=== PATIENT | male | born 1990 | race African-American/Black ===

== ENCOUNTER 2018-10-04 20:14 | Emergency (ER) | payer BC ==
[2018-10-04] MEDS ORDERED: LORazepam 2 MG/ML SDV IVPUSH ONE (20:22)
[2018-10-04] MEDS ORDERED: Metoclopramide 10 MG/2 ML SDV IVPUSH ONE (20:23)
--- NOTE | 2018-10-04 20:27 | EDM.PDOC ---
ED HPI GENERAL MEDICAL PROBLEM - General Chief Complaint: Trauma Stated Complaint: HEAD INJURY Time Seen by Provider: 10/04/18 20:21 Source of Information: Reports: Patient, Other (witnesses to the accident. ) History Limitations: Reports: Altered Mental Status - History of Present Illness INITIAL COMMENTS - FREE TEXT/NARRATIVE: 27-year-old male -[place] in ancestry presents to the ED after a skateboarding accident in which he fell and reportedly struck his head hard on the pavement of the street and his lower back on the concrete curb. He occurred approximately 25 minutes ago. A fellow who witnessed the accident reports that he attended in right away and initially he could converse normally did not lose consciousness. However he then started to rapidly deteriorate with confused speech and mumbled speech. In the ED he is mumbling and stating that he just wants to go home that he is very tired. He is not oriented to place person or time. Past history is unknown. Patient is not able to supply this information. Onset: Today Onset Date: 10/04/18 Onset Time: 19:55 Duration: Minutes: Location: Reports: Head, Neck, Back (Lower back mid back) Quality: Reports: Other Severity: Moderate Improves with: Reports: None Worsens with: Reports: Other (Neuro function is deteriorated according to his friend since the time of injury with mumbled speech and disorientation to person place and time.) Context: Reports: Trauma (Fall while skateboarding without any protective gear in place.) Associated Symptoms: Reports: Confusion (Altered level of mental status.). Denies: Chest Pain, Cough, cough w sputum, Loss of Appetite, Nausea/Vomiting Treatments FOOD SAFETY OFFICER: Reports: Other (see below) (None.) - Related Data Allergies Allergy/AdvReac Type Severity Reaction Status Date / Time No Known Allergies Allergy Verified 10/04/18 20:27 Home Meds: Home Meds . [Unable to Verify Home Med List] 10/04/18 [History] Review of Systems - Review of Systems Review Of Systems: Unable To Obtain ED EXAM, GENERAL - Physical Exam Exam: See Below Exam Limited By: Altered Mental Status General Appearance: Lethargic, Other (Morning and groaning and making nonsensical speech in terms that he states he just wants to go home. That is very tired. Disoriented to time person and place. Patient is agitated and restless. He is moving his head from side to side but cannot obey any commands. BP is elevated at 182/110. Afebrile pulse of 81 and sinus respiratory is 20 with sats 100% on room air.) Eye Exam: Bilateral Eye: Normal Inspection (Pupils are equal response to light and accommodation.), PERRL Ears: Normal TMs Head: Other (Juana has tenderness and developing subcutaneous hematoma mid and lower occipital scalp in the midline. There is superficial abrasion and superficial bleeding from the exceptional scalp.) Neck: Normal Inspection, Full Range of Motion (He is moving his head from side to side.), Other Respiratory/Chest: No Respiratory Distress, Lungs Clear, Normal Breath Sounds, Respiratory Distress (Mild tachypnea at 20/m due to), Other (No outward signs of any trauma to his anterior chest or sternum.) Cardiovascular: Normal Peripheral Pulses, Regular Rate, Rhythm, No Edema, No Gallop, No Murmur Peripheral Pulses: 3+: Posterior Tibial (L), Posterior Tibial (R), Dorsalis Pedis (L), Dorsalis Pedis (R) GI/Abdominal: Normal Bowel Sounds, Soft, Non-Tender, No Organomegaly, No Mass, Pelvis Stable, Rebound, Other (No signs of abdominal wall trauma.) Back Exam: Other (Complains of pain on palpation at the thoracolumbar junction and over the lumbar spinous processes.) Extremities: Normal Inspection, Normal Range of Motion, Non-Tender, Other (No outward signs of any trauma to his elbow shoulders wrists forearms hips or knees.) Neurological: No Motor/Sensory Deficits (Moving all limbs without any problems.) , Disoriented (Disoriented to person place and time.), Other ([place]ach is nonsensical and he moans and groans. Requests over and over again that just wants to go home that he is very tired.). No: Alert, Oriented, Normal Cognition Psychiatric: Anxious, Other Skin Exam: Other (Minor abrasion to the occipital scalp with some superficial bleeding.) Course - Vital Signs Last Recorded V/S: Last Vital Signs Temp 36.7 C 10/04/18 20:21 Pulse 81 10/04/18 20:21 Resp 20 10/04/18 20:21 BP 182/110 H 10/04/18 20:21 Pulse Ox 100 10/04/18 20:21 - Orders/Labs/Meds Orders: Active Orders 24 hr Category Date Time Status Sodium Chloride 0.9% [Normal Saline] 1,000 ml Med 10/04/18 20:30 Active IV ASDIRECTED Medication Orders Sodium Chloride (Normal Saline) 1,000 mls @ 100 mls/hr IV ASDIRECTED SOULEYMANE Last Admin: 10/04/18 20:29 Dose: 100 mls/hr Labs: Laboratory Tests 10/04/18 10/04/18 10/04/18 Range/Units 20:25 20:25 20:25 WBC 6.36 (4.23-9.07) K/mm3 RBC 5.68 (4.63-6.08) M/mm3 Hgb 15.3 (13.7-17.5) gm/L Hct 44.8 (40.1-51.0) % MCV 78.9 L (79.0-92.2) fl MCH 26.9 (25.7-32.2) pg MCHC 34.2 (32.2-35.5) g/dl RDW Std Deviation 41.1 (35.1-43.9) fL Plt Count 296 (163-337) K/mm3 MPV 9.5 (9.4-12.3) fl Neut % (Auto) 50.0 (34.0-67.9) % Lymph % (Auto) 36.6 (21.8-53.1) % [place] % (Auto) 8.6 (5.3-12.2) % Eos % (Auto) 4.4 (0.8-7.0) Baso % (Auto) 0.2 (0.1-1.2) % Neut # (Auto) 3.18 (1.78-5.38) K/mm3 Lymph # (Auto) 2.33 (1.32-3.57) K/mm3 [place] # (Auto) 0.55 (0.30-0.82) K/mm3 Eos # (Auto) 0.28 (0.04-0.54) K/mm3 Baso # (Auto) 0.01 (0.01-0.08) K/mm3 PT 10.1 (9.7-12.0) SECONDS INR < 0.93 APTT 25 (22-31) SECONDS Sodium 141 (136-145) mEq/L Potassium 3.4 L (3.5-5.1) mEq/L Chloride 104 (98-107) mEq/L Carbon Dioxide 30 (21-32) mEq/L Anion Gap 10.4 (5-15) BUN 10 (7-18) mg/dL Creatinine 1.2 (0.7-1.3) mg/dL Est Cr Clr Drug Dosing 82.70 mL/min Estimated GFR (MDRD) > 60 (>60) mL/min BUN/Creatinine Ratio 8.3 L (14-18) Glucose 91 (74-106) mg/dL Calcium 8.9 (8.5-10.1) mg/dL Total Bilirubin 0.6 (0.2-1.0) mg/dL AST 21 (15-37) U/L ALT 33 (16-63) U/L Alkaline Phosphatase 77 (46-116) U/L Total Protein 8.0 (6.4-8.2) g/dl Albumin 4.1 (3.4-5.0) g/dl Globulin 3.9 gm/dL Albumin/Globulin Ratio 1.1 (1-2) Meds: Medications Generic Name Dose Route Start Last Admin Trade Name Freq PRN Reason Stop Dose Admin Sodium Chloride 1,000 mls @ 100 mls/hr 10/04/18 20:30 10/04/18 20:29 Normal Saline IV 100 mls/hr ASDIRECTED SOULEYMANE Administration Discontinued Medications Generic Name Dose Route Start Last Admin Trade Name Freq PRN Reason Stop Dose Admin Lorazepam 1 mg 10/04/18 20:22 10/04/18 20:29 Ativan IVPUSH 10/04/18 20:23 1 mg ONETIME ONE Administration Metoclopramide HCl 10 mg 10/04/18 20:23 10/04/18 20:31 Reglan IVPUSH 10/04/18 20:24 10 mg ONETIME ONE Administration - Radiology Interpretation Free Text/Narrative:: 27-year-old male apparently injured his head while skateboarding without any protective gear within the last 40 minutes. He has Y Davy was witnessed by another skateboarder who attended him immediately. He states that the patient couldn't speak with him initially and did not appear to have suffered a loss of consciousness. However over the ensuing 10-15 minutes his speech became difficult to understand and mumbling. He became disoriented to person place and time and thus was brought to the ED. Patient in the ED is indicating that he just wants to go home and that he is very tired and wants to sleep. He does have a hematoma developing occipital scalp a superficial abrasions. Also has evidence of contusion abrasion to the lumbar spine. Plan CT head, CT cervical spine, CT thoracic spine and CT lumbar spine to be carried out. IV will be normal saline at 100 mils per hour. Given Reglan 10 mg IV and nausea relief and Ativan 1 mg IV in the hopes of providing mild sedation to allow for appropriate CT head. - Re-Assessments/Exams Free Text/Narrative Re-Assessment/Exam: 10/04/18 21:15: CT head reveals a possible abnormality in the right occipital brain adjacent to the falx. Be just in the watershed zone I will await the radiologist's report. Questionable skull fracture on the left occipital scalp. No severe subdural hematoma evident. CT cervical spine thoracic spine and lumbar spine do not reveal any fractures. Patient is resting at present with the above medications have been given to provide sedation and relief of agitation from concussion. 10/04/18 21:26 Labs are normal with a white count of 6.36. Differential shows 50 % neutrophils on the auto differential. Hemoglobin is 15.3 with hematocrit of 44.8. MCV is slightly low at 78.9 suggesting iron deficiency or hereditary spherocytosis. PT is 10.1 with an INR of less than 0.93. PTT is 25. Sodium 141 with a but potassium of 3.4. Chloride is 104 the bicarbonate 30. Anion gap is 10.4. B you and is 10 with a creatinine of 1.2. Estimated GFR is greater than 60. Glucose is 91 with a calcium of 8.9. Liver function normal. Total protein is 8.0 with an albumin fraction of 4.1. 10/04/18 21:50: CT of the head neck thoracic and lumbar spine is been over read by the radiologist. She does not see any significant evidence of intracranial hemorrhage in the occipital scalp and no skull fractures. He does appreciate mild paranasal sinus disease within the ethmoids and sphenoids and frontal sinuses as I did notice as well but did not comment on. He agrees with no fractures in the thoracic or lumbar spine or in the cervical spine. Patient's mother is here and willing to accept care at home. For the next 24 hours and aid him as needed. He will use Motrin or Tylenol for headache relief. Given to excuse him from the work place for the next week as he works on a work over rate which means climbing ladders and being up off the ground. He makes peers vertigo and dizziness for several days due to the nature of his injury. Just follow-up with his personal care physician on Friday this week to be cleared to return to work. Departure - Departure Time of Disposition: 21:55 Disposition: Home, Self-Care 01 Condition: Fair Clinical Impression: Head injury, closed, with concussion Qualifiers: Encounter type: initial encounter Loss of consciousness presence/duration: without LOC Qualified Code(s): S06.0X0A - Concussion without loss of consciousness, initial encounter Contusion of lower back Qualifiers: Encounter type: initial encounter Qualified Code(s): S30.0XXA - Contusion of lower back and pelvis, initial encounter Sprain of cervical neck Qualifiers: Encounter type: initial encounter Qualified Code(s): S13.9XXA - Sprain of joints and ligaments of unspecified parts of neck, initial encounter - Discharge Information Instructions: Head Injury, Adult, Concussion, Adult, Contusion, [id number] Referrals: PCP,None [Primary Care Provider] - Forms: ED Department Discharge, ED Return to Work/School Form Additional Instructions: Evaluation the emergency room tonight after suffering a closed head injury without reported loss of consciousness on scene. Definite concussion has occurred with confusion and disorientation to person time and place when you arrived in the ED. The scan of the brain does not show any signs of bleeding intracranially or skull fracture. CT of the neck bones mid back bones and the lower back bones called the cervical, thoracic and lumbar spine do not reveal any signs of broken bones. As the landed across her lower back on the curb of the sidewalk. Expect to be much more stiff and sore over the next 2-3 days and then start to gradually improve. Just plenty of rest and plenty of fluids concussion syndrome is headache. Sometimes loss of balance. Sometimes trouble focusing vision. Sometimes irritability for no good reason. Suggest off work for the next week due to concussion and closed head injury as you should not be climbing or bee off the ground for at least 72 hours. Should not operate a motor vehicle for at least 24 hours. It is okay to use Motrin 600 mg every 6 hours or Tylenol 1 g every 6 hours for pain relief. Return to the ED if nausea and vomiting occurs. Follow-up with personal care physician if you don't feel you're able to return to work by Friday this week. Suggest follow-up through the [facility] on Friday if needed by workplace cage you are fit to return to work. - My Orders Last 24 Hours: My Active Orders 10/04/18 20:30 Sodium Chloride 0.9% [Normal Saline] 1,000 ml IV ASDIRECTED - Assessment/Plan Last 24 Hours: My Active Orders 10/04/18 20:30 Sodium Chloride 0.9% [Normal Saline] 1,000 ml IV ASDIRECTED
[2018-10-04] MEDS ORDERED: Sodium Chloride 0.9% 1,000 ML IV SCH (20:30)
--- NOTE | 2018-10-04 21:36 | CT ---
CT cervical spine Technique: Multiple axial sections were obtained from above C1 inferiorly to the bottom of T1. Reconstructed sagittal and coronal images were reviewed. Findings: Posterior skull base appears intact. Vertebral body heights and disc spaces are maintained. No bony central lower bony neural foraminal stenosis is seen. Vertebral bodies and posterior arches are intact with no fracture being identified. No abnormal subluxation is seen on the reconstructed sagittal images. Impression: 1. Nothing acute is appreciated on CT study of the cervical spine. Diagnostic code #1
--- NOTE | 2018-10-04 21:40 | CT ---
CT lumbar spine Technique: Multiple axial sections through the lumbar spine were obtained. Reconstructed coronal and sagittal images were reviewed. Intravenous contrast was not utilized. Comparison: Previous lumbar spine plain film study of 03/17/18. Findings: Slight posterior disc space narrowing is noted at L5-S1 which is believed to be physiologic. Mild diffuse posterior disc bulge is noted at L5-S1 also most likely physiologic. Vertebral body heights and disc spaces otherwise are maintained. No fracture is identified. Visualized portions of the sacrum appear intact. No abnormal subluxation is seen. No traumatic disc herniation is seen. Impression: 1. Nothing acute is appreciated on CT study of the lumbar spine. Diagnostic code #1
--- NOTE | 2018-10-04 21:40 | CT ---
Head CT Technique: Multiple axial sections through the brain were obtained. Intravenous contrast was not utilized. Comparison: No prior intracranial imaging is available. Findings: Ventricles along with basal cisterns and sulci over the convexities are within normal limits for the patient's age. No abnormal parenchymal densities are seen. No evidence of intracranial hemorrhage is seen. No midline shift or mass effect is seen. Bone window settings were reviewed which shows moderate mucosal thickening within the frontal and ethmoid sinuses. Visualized mastoid sinuses are clear. No acute calvarial abnormality is identified. Impression: 1. Paranasal sinus disease as noted above which is most likely due to chronic sinusitis. 2. No acute intracranial abnormality is seen. No acute calvarial abnormality is seen. Diagnostic code #2
--- NOTE | 2018-10-04 21:42 | CT ---
CT thoracic spine Technique: Multiple axial sections through the thoracic spine were obtained. Reconstructed coronal and sagittal images were reviewed. Findings: Vertebral body heights and disc spaces are maintained. Vertebral bodies and posterior arches are intact with no fracture being seen. No bony central or bony neural foraminal stenosis is noted. Visualized lungs are clear. No paravertebral soft tissue swelling is identified. No discrete disc herniation is appreciated. No abnormal subluxation is seen. Visualized ribs show no discrete fracture. Scoliosis is noted within the upper thoracic spine and cervical spine. Impression: 1. Slight scoliosis. 2. Nothing acute is appreciated on CT study of the thoracic spine. Diagnostic code #2
== END 2018-10-04 22:15 | disposition home or self-care (01) ==
LOC: JD.ED 20:14
DX: S06.0X0A Concussion without loss of consciousness, initial encounter (principal); S13.9XXA Sprain of joints and ligaments of unspecified parts of neck, initial encounter; S30.0XXA Contusion of lower back and pelvis, initial encounter; S00.03XA Contusion of scalp, initial encounter; V00.131A Fall from skateboard, initial encounter
CPT/HCPCS: 36415; 70450; 72125; 72128; 72131; 80053; 85025; 85610; 85730; 96361; 96374; 96375; 99284; J2060; J2765; J7040

== ENCOUNTER 2022-11-03 15:15 | Emergency (ER) | payer SELFPAY ==
[2022-11-03 16:18] LABS: BASOPHILS PERCENT AUTO 0.4 % (0.0-1.0); EOSINOPHILS ABSOLUTE AUTO 0.1 K/mm3 (0.0-0.4); HEMATOCRIT 44.4 % (42.0-52.0); HEMOGLOBIN 14.9 gm/dl (14.0-18.0); IMMATURE GRAN ABSOLUTE AUTO 0.01 K/mm3 (0.00-0.05); IMMATURE GRAN PERCENT AUTO 0.2 % (0.0-0.4); LYMPHOCYTES ABSOLUTE AUTO 1.9 K/mm3 (1.0-4.8); LYMPHOCYTES PERCENT AUTO 35.5 % (24.0-44.0); MEAN CORPUSCULAR HEMOGLOBIN 26.4 pg (28.0-32.0); MEAN CORPUSCULAR HGB CONC 33.6 g/dl (32.0-36.0); MEAN CORPUSCULAR VOLUME 78.6 fl (83.0-99.0); MEAN PLATELET VOLUME 8.8 fl (9.4-12.4); MONOCYTES ABSOLUTE AUTO 0.5 K/mm3 (0.0-0.8); MONOCYTES PERCENT AUTO 9.1 % (0.0-8.0); NEUTROPHILS ABSOLUTE AUTO 2.8 K/mm3 (1.8-7.7); NEUTROPHILS PERCENT AUTO 52.8 % (41.0-71.0); PLATELET COUNT,PLT 300 K/mm3 (150-400); RED BLOOD CELL COUNT 5.65 M/mm3 (4.52-5.90); WHITE BLOOD CELL COUNT,WBC 5.38 K/mm3 (3.9-11.3)
[2022-11-03 16:49] LABS: ALBUMIN 4.2 g/dl (3.4-5.0); BILIRUBIN TOTAL 1.7 mg/dL (0.2-1.0); BUN/CREATININE RATIO 6.7 (14-18); CALCIUM 9.5 mg/dL (8.5-10.1); CREATININE 1.2 mg/dL (0.7-1.3); EST CRCL DRUG DOSING (CG) 79.75 mL/min; PROTEIN TOTAL,TP 8.3 g/dl (6.4-8.2); TSH 0.666 uIU/mL (0.358-3.74)
[2022-11-03 18:12] LABS: BARBITURATE SCREEN,URINE NEGATIVE (CUTOFF=200); BENZODIAZEPINES SCREEN,URINE NEGATIVE (CUTOFF=150); BUPRENORPHINE SCREEN,URINE NEGATIVE (CUTOFF=10); METHADONE SCREEN, URINE NEGATIVE (CUT0FF=200); METHAMPHETAMINES SCREEN, URINE PRESUMPTIVE POSITIVE (CUTOFF=500); OXYCODONE SCREEN,URINE NEGATIVE (CUT0FF=100); PROPOXYPHENE SCREEN,URINE NEGATIVE (CUTOFF=300); THC SCREEN,URINE 20 NG/ML NEGATIVE (CUTOFF=50)
[2022-11-03 18:13] LABS: AMPHETAMINES SCREEN, URINE PRESUMPTIVE POSITIVE (CUTOFF=500)
[2022-11-03] MEDS ORDERED: cloNIDine 0.1 MG Tab PO ONE ×2 (18:32→20:11)
[2022-11-03] MEDS ORDERED: Potassium Chloride 20 MEQ Tab.ER PO ONE (18:32)
[2022-11-03] MEDS ORDERED: amLODIPine 10 MG Tab PO ONE (20:03)
== END 2022-11-03 22:21 ==
LOC: JD.ED 15:15
DX: F32.A Depression, unspecified (principal); R45.851 Suicidal ideations; I10 Essential (primary) hypertension; F17.210 Nicotine dependence, cigarettes, uncomplicated; Z20.822 Contact with and (suspected) exposure to COVID-19
CPT/HCPCS: 36415; 80053; 80143; 80179; 80306; 80307; 84443; 85025; 87635; 99285; A9270; 99284; U0002